=== PATIENT | female | born 2000 | race Caucasian/White ===

== ENCOUNTER 2018-07-16 21:18 | Emergency (ER) | payer MEDICAID ==
[~2018-07-16] VITALS: Ht 175.3 cm; Wt 82.4 kg
[2018-07-16 23:00] LABS: BASOPHILS # (AUTO) 0.03 x10^3/uL (0-0.3); BASOPHILS % (AUTO) 0 % (0-1); EOSINOPHILS # (AUTO) 0.01 x10^3/uL (0-0.8); EOSINOPHILS % (AUTO) 0 % (1-7); LYMPHOCYTES # (AUTO) 1.06 x10^3/uL (1-6.1); LYMPHOCYTES % (AUTO) 16 % (22-44); MD NO; MEAN CORPUSCULAR HGB CONC 34.5 g/dL (32.4-35.8); MEAN PLATELET VOLUME 8.3 fL (7.4-10.4); MONOCYTES # (AUTO) 0.79 x10^3/uL (0-1.4); MONOCYTES % (AUTO) 12 % (2-9); NEUTROPHILS # (AUTO) 4.96 x10^3/uL (1.8-8.0); NEUTROPHILS % (AUTO) 73 % (42-75); PLATELET COUNT 229 x10^3/uL (130-400); RED BLOOD COUNT 4.97 x10^6/uL (3.82-5.3); RED CELL DISTRIBUTION WIDTH 13.1 % (9.6-15.2)
[2018-07-16 23:10] LABS: ALANINE AMINOTRANSFERASE 26 U/L (12-78); ALBUMIN 3.4 g/dL (3.4-5.0); ANION GAP 7 mmol/L (5-15); CALCIUM 8.3 mg/dL (8.5-10.1); CHLORIDE 105 mmol/L (98-107); CREATININE 0.89 mg/dL (0.55-1.02)
[2018-07-16 23:13] LABS: ALKALINE PHOSPHATASE 102 U/L (45-117); BILIRUBIN,TOTAL 0.2 mg/dL (0.2-1.0); TOTAL PROTEIN 7.2 g/dL (6.4-8.2)
[2018-07-16 23:36] LABS: MICROSCOPIC AUTO
[2018-07-16 23:38] VITALS: BP 128/78
[2018-07-16 23:42] LABS: CULTURE INDICATED? YES
[2018-07-17] MEDS ORDERED: AZITHROMYCIN 500 MG TABLET PO ONE
[2018-07-17] MEDS ORDERED: CEFTRIAXONE 250 MG ONE
[2018-07-17] MEDS ORDERED: AZITHROMYCIN 500 MG TABLET ONE
[2018-07-17] MEDS ORDERED: CEFTRIAXONE 250 MG IM ONE
[2018-07-17 00:04] LABS: CLUE CELLS NONE SEEN (NONE SEEN); WET PREP WBCS FEW (FEW)
== END 2018-07-17 00:25 | disposition home or self-care (01) ==
LOC: ED 22:56
DX: A74.9 Chlamydial infection, unspecified (principal); A54.9 Gonococcal infection, unspecified; A60.00 Herpesviral infection of urogenital system, unspecified
CPT/HCPCS: 36415; 76830; 80053; 81001; 81025; 85025; 87086; 87210; 87491; 87591; 87808; 96372; 99284; J0696

== ENCOUNTER 2020-02-03 06:51 | Emergency (ER) | payer MEDICAID ==
[~2020-02-03] VITALS: Ht 175.3 cm; Wt 103.5 kg
--- NOTE | 2020-02-03 07:03 | NUR ---
patient arrives with friend with hives that began friday, there are small all over little bumps to neck/trunk. it began at work, she works at a warehouse.
[2020-02-03] MEDS ORDERED: FAMOTIDINE 20 MG TABLET ONE (07:18)
[2020-02-03] MEDS ORDERED: DEXAMETHASONE 4 MG TABLET ONE (07:18)
[2020-02-03] MEDS ORDERED: DIPHENHYDRAMINE 50 MG/ML, 1ML ONE (07:18)
[2020-02-03] MEDS ORDERED: DEXAMETHASONE 4 MG TABLET PO ONE (07:30)
[2020-02-03] MEDS ORDERED: DIPHENHYDRAMINE 50 MG/ML, 1ML IM ONE (07:30)
[2020-02-03] MEDS ORDERED: FAMOTIDINE 20 MG TABLET PO ONE (07:30)
[2020-02-03 08:07] LABS: BASOPHILS # (AUTO) 0.02 x10^3/uL (0-0.1); BASOPHILS % (AUTO) 0 % (0-1); EOSINOPHILS # (AUTO) 0.05 x10^3/uL (0-0.4); EOSINOPHILS % (AUTO) 1 % (1-7); LYMPHOCYTES # (AUTO) 2.01 x10^3/uL (1-3.4); LYMPHOCYTES % (AUTO) 25 % (22-44); MD NO; MEAN CORPUSCULAR HEMOGLOBIN 29.8 pg (27.0-34.8); MEAN CORPUSCULAR HGB CONC 33.7 g/dL (32.4-35.8); MEAN CORPUSCULAR VOLUME 88.4 fL (80-100); MEAN PLATELET VOLUME 8.4 fL (7.4-10.4); MONOCYTES # (AUTO) 0.61 x10^3/uL (0.2-0.8); MONOCYTES % (AUTO) 8 % (2-9); NEUTROPHILS # (AUTO) 5.31 x10^3/uL (1.8-6.8); NEUTROPHILS % (AUTO) 66 % (42-75); PLATELET COUNT 275 x10^3/uL (130-400); RED BLOOD COUNT 4.94 x10^6/uL (3.82-5.3)
[2020-02-03 08:31] VITALS: BP 128/78
== END 2020-02-03 08:37 | disposition home or self-care (01) ==
LOC: ED 07:25
DX: R21 Rash and other nonspecific skin eruption (principal); T78.40XA Allergy, unspecified, initial encounter; X58.XXXA Exposure to other specified factors, initial encounter
CPT/HCPCS: 36415; 85025; 96372; 99283; J1200